=== PATIENT | female | born 1945 | race Caucasian/White ===

== ENCOUNTER 2016-12-27 21:50 | Emergency (ER) | payer SELFPAY ==
[2016-12-27 22:58] LABS: BASOPHIL % 0.2 % (0-2); PLATELET COUNT 228 x10^3mcL (130-400)
[2016-12-27 23:00] LABS: CARBON DIOXIDE 31.8 mmol/L (21-32); CHLORIDE SERUM 104 mmol/L (98-107); CREATININE SERUM 0.8 mg/dL (0.6-1.0); GFR1 > 60 mL/min; GLUCOSE SERUM 141 mg/dL (74-106); POTASSIUM SERUM 3.7 mmol/L (3.5-5.1); SODIUM SERUM 143 mmol/L (136-145)
[2016-12-27 23:06] LABS: ALKALINE PHOSPHATASE 70 U/L (46-116); ALT/SGPT 25 U/L (14-59); AMYLASE 67 U/L (25-115); AST/SGOT 24 U/L (15-37); BILIRUBIN TOTAL 0.63 mg/dL (0.20-1.00); LIPASE 171 IU/L (73-393); TOTAL PROTEIN, SERUM 7.9 g/dL (6.4-8.2)
[2016-12-28 00:32] VITALS: BP 136/82
== END 2016-12-28 00:32 | disposition home or self-care (01) ==
LOC: ED 21:50
PROVIDERS: Emergency Medicine
DX: K56.7 Ileus, unspecified (principal); R10.30 Lower abdominal pain, unspecified; I10 Essential (primary) hypertension; E78.00 Pure hypercholesterolemia, unspecified
CPT/HCPCS: 83880; J1885